=== PATIENT | male | born 1960 | race Two or more races ===

== ENCOUNTER 2025-10-31 00:55 | Emergency (ER) | payer MEDICAID, OTHER ==
[~2025-10-31] VITALS: Ht 170.2 cm; Wt 90.7 kg
[~2025-10-31 00:55] MED LIST: *INS REG3 SQ; BUPR150T12 PO; INSU100V7 SQ; METF-442 PO; QUET400T PO
[2025-10-31 01:11] VITALS: TEMP 98.2
[2025-10-31 01:33] LABS: PLATELET COUNT (AUTO) 236 K/uL (150-450); RED BLOOD CELL COUNT(AUTO) 4.58 MIL/uL (4.5-6.0); RED CELL DISTRIBUTION WIDTH 15.3 % (11.5-15.0); WHITE BLOOD COUNT (AUTO) 6.4 K/uL (4.3-11.0)
[2025-10-31 01:39] LABS: APPEARANCE,URINE CLEAR (CLEAR); BLOOD, URINE 1+ Ery/uL (NEGATIVE); LEUKOCYTE ESTERASE ,URINE NEGATIVE (NEGATIVE); NITRITE, URINE NEGATIVE (NEGATIVE); UGLUCOSE TRACE mg/dL (NEGATIVE)
[2025-10-31 01:41] LABS: CALCIUM, SERUM 9.0 mg/dL (8.5-10.1); CREATININE 1.0 mg/dL (0.6-1.3); SODIUM SERUM 140 mmol/L (136-145); UREA NITROGEN, BLOOD 31 mg/dL (7-18)
[2025-10-31 01:47] LABS: ALCOHOL, BLOOD < 3 mg/dL (0-10); ASPARTATE AMINOTRANSFERASE 72 U/L (15-37); TOTAL PROTEIN, SERUM 8.1 g/dL (6.4-8.2)
[2025-10-31 01:49] LABS: AMPHETAMINE, URINE POSITIVE (NEGATIVE); BARBITURATE, URINE NEGATIVE (NEGATIVE); BENZODIAZEPINE, URINE NEGATIVE (NEGATIVE); CANNABINOID, URINE NEGATIVE (NEGATIVE); COCCAINE, URINE NEGATIVE (NEGATIVE); OPIATE, URINE NEGATIVE (NEGATIVE)
[2025-10-31 02:00] LABS: ADD URINE CULTURE NO
[2025-10-31 02:01] LABS: HYALINE CASTS, URINE Few /LPF (None Seen)
[2025-10-31 06:00] VITALS: BP 151/86; O2SAT 95
== END 2025-10-31 08:06 ==
LOC: ER 02:11
DX: R45.851 Suicidal ideations (principal); E11.9 Type 2 diabetes mellitus without complications; Z79.84 Long term (current) use of oral hypoglycemic drugs; Z79.899 Other long term (current) drug therapy
CPT/HCPCS: 36415; 80048-TC; 80076-TC; 81001; 82962-TC; 85025-TC; G0480

== ENCOUNTER 2025-10-31 14:11 | Inpatient (IN) | payer MEDICAID ==
[~2025-10-31] VITALS: Ht 170.2 cm; Wt 75.3 kg
[2025-10-31] MEDS ORDERED: LORAZEPAM INJ 2 MG/ML VIAL ONE (14:36)
[2025-10-31] MEDS: LORAZEPAM INJ 2 MG/ML VIAL IV ONE (14:45)
[2025-10-31] MEDS: IV NS 0.9% 1,000 ML BAG IV ONE ×3 (14:45→22:15)
[2025-10-31 14:58] LABS: PLATELET COUNT (AUTO) 274 K/uL (150-450); RED BLOOD CELL COUNT(AUTO) 4.47 MIL/uL (4.5-6.0); RED CELL DISTRIBUTION WIDTH 15.1 % (11.5-15.0); WHITE BLOOD COUNT (AUTO) 8.5 K/uL (4.3-11.0)
[2025-10-31 15:14] LABS: SERUM AMMONIA 47 umol/L (11-32)
[2025-10-31 15:15] LABS: ALCOHOL, BLOOD < 3 mg/dL (0-10); ASPARTATE AMINOTRANSFERASE 81 U/L (15-37); CALCIUM, SERUM 8.9 mg/dL (8.5-10.1); CREATININE 1.5 mg/dL (0.6-1.3); SODIUM SERUM 143 mmol/L (136-145); TOTAL PROTEIN, SERUM 8.3 g/dL (6.4-8.2); UREA NITROGEN, BLOOD 37 mg/dL (7-18)
[2025-10-31 15:28] LABS: APPEARANCE,URINE CLEAR (CLEAR); BLOOD, URINE NEGATIVE Ery/uL (NEGATIVE); LEUKOCYTE ESTERASE ,URINE NEGATIVE (NEGATIVE); NITRITE, URINE NEGATIVE (NEGATIVE); UGLUCOSE TRACE mg/dL (NEGATIVE)
[2025-10-31 15:51] LABS: BARBITURATE, URINE NEGATIVE (NEGATIVE); BENZODIAZEPINE, URINE NEGATIVE (NEGATIVE); CANNABINOID, URINE NEGATIVE (NEGATIVE); COCCAINE, URINE NEGATIVE (NEGATIVE); OPIATE, URINE NEGATIVE (NEGATIVE)
[2025-10-31 15:52] LABS: AMPHETAMINE, URINE POSITIVE (NEGATIVE)
[2025-10-31 15:56] LABS: ADD URINE CULTURE NO; SQUAMOUS EPITHELIAL CELL,UR 0-2 /HPF (None Seen)
[2025-10-31] MEDS ORDERED: LACTULOSE 10 G/15 ML UDC (PYXIS) ONE (22:08)
[2025-10-31] MEDS: LACTULOSE 10 G/15 ML UDC (PYXIS) PO ONE (22:19)
[2025-10-31 23:20] VITALS: BP 99/86; TEMP 98.4; O2SAT 98
[2025-10-31 23:30] VITALS: BP 99/86; TEMP 98.4; O2SAT 98
[2025-10-31] MEDS ORDERED: DEXTROSE 50%-WATER 50 ML DISP.SYRIN IV PRN (23:30)
[2025-10-31] MEDS ORDERED: MAGNESIUM HYDROXIDE 30 ML UDC PO PRN (23:30)
[2025-10-31] MEDS ORDERED: ONDANSETRON HCL/PF 4 MG/2 ML VIAL IVP PRN (23:30)
[2025-10-31] MEDS ORDERED: MAG HYDROX/AL HYDROX/SIMETH 30 ML UDC PO PRN (23:30)
[2025-10-31] MEDS ORDERED: ACETAMINOPHEN 325 MG TABLET PO PRN (23:30)
[2025-10-31] MEDS: IV NS 0.9% 1,000 ML IV PRN (23:51)
[2025-10-31] MEDS: ENOXAPARIN SODIUM 40 MG/0.4 ML DISP.SYRIN SQ SCH (23:52)
[2025-11-01 04:00] VITALS: BP 141/81; TEMP 98.2; O2SAT 98
[2025-11-01] MEDS: BLOOD SUGAR DIAGNOSTIC 1 EACH STRIP IN SCH (06:32)
[2025-11-01] MEDS: INSULIN REGULAR, HUMAN 100 UNIT/ML 3 ML VIAL SQ PRN (06:32)
[2025-11-01 06:56] LABS: SERUM AMMONIA 21.0 umol/L (11-32)
[2025-11-01 07:03] LABS: PLATELET COUNT (AUTO) 187 K/uL (150-450); RED BLOOD CELL COUNT(AUTO) 3.88 MIL/uL (4.5-6.0); RED CELL DISTRIBUTION WIDTH 15.4 % (11.5-15.0); WHITE BLOOD COUNT (AUTO) 7.6 K/uL (4.3-11.0)
[2025-11-01 07:04] LABS: ASPARTATE AMINOTRANSFERASE 99.0 U/L (15-37); CALCIUM, SERUM 7.5 mg/dL (8.5-10.1); CREATININE 1.2 mg/dL (0.6-1.3); PHOSPHORUS 3.3 mg/dL (2.5-4.9); SODIUM SERUM 147.0 mmol/L (136-145); TOTAL PROTEIN, SERUM 7.0 g/dL (6.4-8.2); UREA NITROGEN, BLOOD 37.0 mg/dL (7-18)
[2025-11-01 08:00] VITALS: BP 108/66; TEMP 99.5; O2SAT 98
[2025-11-01] MEDS: IV 1/2NS 1000 ML 1,000 ML IV PRN (08:54)
[2025-11-01 11:30] VITALS: BP 128/64; TEMP 98.6; O2SAT 100
[2025-11-01] MEDS: VALPROIC ACID 250 MG/5 ML UDC PO SCH (12:44)
[2025-11-01] MEDS: LORAZEPAM 0.5 MG TABLET PO PRN (15:01)
[2025-11-01 17:21] LABS: APPEARANCE,URINE CLEAR (CLEAR); BLOOD, URINE TRACE-INTA Ery/uL (NEGATIVE); LEUKOCYTE ESTERASE ,URINE TRACE (NEGATIVE); NITRITE, URINE NEGATIVE (NEGATIVE); UGLUCOSE NEGATIVE (NEGATIVE)
[2025-11-01 17:42] LABS: CREATININE, URINE 147.0 MG/DL (30.0-125.0); URINE SODIUM, RANDOM 69.0 mmol/l (40-220); URINE TOTAL PROTEIN 115.9 mg/dL (0-11.9)
[2025-11-01 18:23] LABS: ADD URINE CULTURE NO
[2025-11-01 18:25] LABS: EOSINOPHIL,URINE Rare
[2025-11-01 19:19] VITALS: BP 137/78; TEMP 98.4; O2SAT 100
[2025-11-01 20:00] VITALS: BP 147/80; TEMP 98.4; O2SAT 96
[2025-11-02] VITALS: BP 137/73; TEMP 98.4; O2SAT 96
[2025-11-02 04:00] VITALS: BP 144/75; TEMP 98.2; O2SAT 97
[2025-11-02 08:00] VITALS: BP 142/80; TEMP 97.7; O2SAT 99
[2025-11-02 10:12] LABS: PLATELET COUNT (AUTO) 188 K/uL (150-450); RED BLOOD CELL COUNT(AUTO) 3.87 MIL/uL (4.5-6.0); RED CELL DISTRIBUTION WIDTH 15.2 % (11.5-15.0); WHITE BLOOD COUNT (AUTO) 4.8 K/uL (4.3-11.0)
[2025-11-02 10:25] LABS: ASPARTATE AMINOTRANSFERASE 51.0 U/L (15-37); CALCIUM, SERUM 7.8 mg/dL (8.5-10.1); CREATININE 0.9 mg/dL (0.6-1.3); SODIUM SERUM 144.0 mmol/L (136-145); TOTAL PROTEIN, SERUM 6.4 g/dL (6.4-8.2); UREA NITROGEN, BLOOD 12.0 mg/dL (7-18)
[2025-11-02 16:00] VITALS: BP 140/77; TEMP 96.6; O2SAT 98
[2025-11-02 20:00] VITALS: BP 144/86; TEMP 98.4; O2SAT 100
[2025-11-02 20:17] VITALS: BP 144/86; TEMP 98.4; O2SAT 100
[2025-11-03] VITALS: BP 132/71; TEMP 98; O2SAT 96
[2025-11-03 04:00] VITALS: BP 145/83; TEMP 97.8; O2SAT 97
[2025-11-03 08:00] VITALS: BP 132/75; TEMP 98.2; O2SAT 99
[2025-11-03 16:00] VITALS: BP 133/79; TEMP 97.8; O2SAT 99
[2025-11-03 20:00] VITALS: BP 152/91; TEMP 97.9; O2SAT 99
== END 2025-11-03 21:50 ==
LOC: ER 14:16 → TELE 22:54
PROVIDERS: ADMIT Internal Medicine
DX: K76.82 Hepatic encephalopathy (principal); N17.0 Acute kidney failure with tubular necrosis; G92.9 Unspecified toxic encephalopathy; E87.0 Hyperosmolality and hypernatremia; E11.9 Type 2 diabetes mellitus without complications; F19.10 Other psychoactive substance abuse, uncomplicated; D63.8 Anemia in other chronic diseases classified elsewhere; F39 Unspecified mood [affective] disorder; K76.0 Fatty (change of) liver, not elsewhere classified; Z79.4 Long term (current) use of insulin; Z79.84 Long term (current) use of oral hypoglycemic drugs; Z79.899 Other long term (current) drug therapy; R74.01 Elevation of levels of liver transaminase levels; K82.8 Other specified diseases of gallbladder
CPT/HCPCS: 36415; 70450-TC; 71045-TC; 76705-TC; 80048-TC; 80053-TC; 80076-TC; 81001; 82140-TC; 82570-TC; 82962-TC; 83735-TC; 84100-TC; 84300-TC; 84443-TC; 84484-TC; 85025-TC; 87081-TC; 87086-TC; A4223; G0378; G0480; J1650; J1815; J2060; J3490; J7030